=== PATIENT | male | born 2005 | race Two or more races ===

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

== ENCOUNTER 2023-02-13 01:40 | Emergency (ER) | payer OTHER ==
[~2023-02-13] VITALS: Ht 177.8 cm; Wt 118.1 kg
[~2023-02-13 01:40] MED LIST: ALBUAER3 IN; AMOX-277 PO; PRED20TA2 PO
[2023-02-13 01:57] LABS: Basophils # (auto) 0.1 10 ^3/uL (0-0.2); Eosinophils # (auto) 0.3 10 ^3/uL (0-0.8); Eosinophils % (auto) 4.3 % (0.0-7.0); Hematocrit 46.8 % (41.0-53.0); Hemoglobin 16.3 g/dL (13.5-17.5); Lymphocytes # (auto) 3.1 10 ^3/uL (0.4-5.4); Mean Corpuscular Hemoglobin 29.2 pg (28.0-32.0); Mean Corpuscular Hgb Conc. 34.9 g/dL (32.0-36.0); Mean Corpuscular Volume 83.8 fL (80.0-100.0); Monocytes # (auto) 0.7 10 ^3/uL (0-1.3); Monocytes % (auto) 8.2 % (0.0-12.0); Neutrophils # (auto) 3.9 10 ^3/uL (1.6-8.6); Neutrophils % (auto) 48.5 % (37.0-80.0); Nucleated Red Blood Cells % 0.1 %; Red Blood Cells 5.58 10^6/uL (4.5-5.90); Red Cell Distribution Width 13.1 % (11.8-14.3); White Blood Cell 8.1 10^3/uL (4.4-10.8)
[2023-02-13 02:12] LABS: INR 0.97 (0.9-1.15); Partial Thromboplastin Time 26.7 sec (24.6-33.4)
[2023-02-13 02:16] LABS: Albumin 4.1 g/dL (3.4-5.0); Calcium 9.7 mg/dL (8.5-10.1); Magnesium 2.3 mg/dL (1.6-2.6); Potassium 3.6 mmol/L (3.5-5.1)
[2023-02-13 02:21] LABS: Bilirubin, Total 0.3 mg/dL (0.2-1.0); Total Protein 7.6 g/dL (6.4-8.2)
[2023-02-13] MEDS ORDERED: ALPR0.5T PO (04:44)
[2023-02-13] MEDS ORDERED: ALPRAZolam 0.5 MG TAB PO ONE (04:45)
[2023-02-13 05:17] VITALS: BP 137/75
== END 2023-02-13 05:21 | disposition home or self-care (01) ==
LOC: ER 01:40
DX: R07.89 Other chest pain (principal); Z79.899 Other long term (current) drug therapy
CPT/HCPCS: 36415; 71046; 80053; 83735; 83880; 84484; 85025; 85610; 85730; 93005

== ENCOUNTER 2023-06-16 03:10 | Emergency (ER) | payer OTHER ==
[~2023-06-16] VITALS: Ht 177.8 cm; Wt 121.4 kg
[~2023-06-16 03:10] MED LIST changes: +ALPR0.5T PO; -AMOX-277 PO; +AMOX875T4 PO
[2023-06-16 03:50] LABS: Basophils # (auto) 0.1 10 ^3/uL (0-0.2); Basophils % (auto) 0.6 % (0.0-2.0); Eosinophils # (auto) 0.5 10 ^3/uL (0-0.8); Eosinophils % (auto) 3.9 % (0.0-7.0); Hematocrit 47.4 % (41.0-53.0); Hemoglobin 16.2 g/dL (13.5-17.5); Lymphocytes # (auto) 4.6 10 ^3/uL (0.4-5.4); Lymphocytes % (auto) 36.2 % (10.0-50.0); Mean Corpuscular Hemoglobin 28.9 pg (28.0-32.0); Mean Corpuscular Hgb Conc. 34.1 g/dL (32.0-36.0); Mean Corpuscular Volume 84.6 fL (80.0-100.0); Monocytes # (auto) 0.9 10 ^3/uL (0-1.3); Monocytes % (auto) 6.8 % (0.0-12.0); Neutrophils # (auto) 6.7 10 ^3/uL (1.6-8.6); Neutrophils % (auto) 52.5 % (37.0-80.0); Nucleated Red Blood Cells % 0.1 %; White Blood Cell 12.7 10^3/uL (4.4-10.8)
[2023-06-16 04:02] LABS: Urine Bacteria MANY /hpf (None Seen); Urine Blood Negative /uL (Negative); Urine Clarity HAZY (Clear); Urine Color Yellow (Yellow); Urine Mucus FEW (None Seen); Urine Protein, UAD 2+ (Negative); Urine Specific Gravity 1.026 (1.001-1.035); Urine Sperm PRESENT /hpf (None Seen); Urine Urobilinogen Normal (Negative); Urine WBC 51 /hpf (0 - 3); Urine pH 5.5 (5.0-8.0)
[2023-06-16 04:37] LABS: Amphetamine Screen, Urine Neg (NEGATIVE); Barbiturate Scree,Urine Neg (NEGATIVE); Benzodiazephine Screen, Urine Neg (NEGATIVE); Cannabinoid Screen, Urine Pos (NEGATIVE); Cocaine Screen, Urine Neg (NEGATIVE); Opiate Scree,Urine Neg (NEGATIVE); Phencyclidine Screen, Urine Neg (NEGATIVE)
[2023-06-16 04:42] LABS: Acetaminophen < 2.0 UG/ML (10.0-20.0)
[2023-06-16 04:43] LABS: Alanine Aminotransferase 50 U/L (7-40); Alkaline Phosphatase 101 U/L (46-116); Anion Gap 10.9 (5-15); Aspartate Aminotransferase 27 U/L (13-40); BUN/Creatinine Ratio 14.2 (10.0-20.0); Bilirubin, Total 0.6 mg/dL (0.2-1.0); Blood Urea Nitrogen 17 mg/dL (9-23); Calcium 9.8 mg/dL (8.7-10.4); Carbon Dioxide 23.1 mmol/L (20-30); Chloride 104 mmol/L (98-107); Glucose 155 mg/dL (74-106); Sodium 138 mmol/L (136-145); Total Protein 7.6 g/dL (5.7-8.2)
[2023-06-16 04:44] LABS: Salicylate < 3.0 mg/dL (2.8-20.0)
[2023-06-16] MEDS ORDERED: POTASSIUM EFFERVESENT TAB 25 MEQ PO ONE (05:00)
[2023-06-16] MEDS ORDERED: cefTRIAXone SOD 1,000 MG VL IM ONE (05:00)
[2023-06-16 05:13] VITALS: BP 135/80; PULSE 91; RESP 16; TEMP 97.9; O2SAT 97
== END 2023-06-16 05:14 | disposition home or self-care (01) ==
LOC: ER 03:10
DX: T40.711A Poisoning by cannabis, accidental (unintentional), initial encounter (principal); F41.0 Panic disorder [episodic paroxysmal anxiety]; Z79.899 Other long term (current) drug therapy; Y92.89 Other specified places as the place of occurrence of the external cause
CPT/HCPCS: 36415; 80053; 80307; 80320; 80329; 81001; 85025; 96372; 99283; J0696